=== PATIENT | male | born 1965 | race Caucasian/White ===

== ENCOUNTER → 2016-12-27 | Outpatient (CLI) | payer OTHER ==
--- NOTE | 2016-12-27 15:37 | XR ---
EXAMINATION TYPE: XR wrist complete RT DATE OF EXAM: 12/27/2016 COMPARISON: NONE HISTORY: Pain TECHNIQUE: 3 views submitted. FINDINGS: The joint spaces are preserved. Chronic appearing deformity of the ulnar styloid noted. Chronic defo rmity of the fifth metacarpal suggest previous fracture. IMPRESSION: 1. There is be a chronic deformity involving the ulnar styloid with corticated densities, however, ac bob chip fracture is also suspected correlate with point tenderness.
== END | disposition home or self-care (01) ==
LOC: RADXRYALE 15:19
PROVIDERS: ATTEND Physician Assistant Medical
DX: M21.931 Unspecified acquired deformity of right forearm (principal)

== ENCOUNTER 2017-08-22 21:21 | Emergency (ER) | payer BC, OTHER ==
[2017-08-22 22:01] VITALS: TEMP 97.5
[2017-08-22 22:34] VITALS: BP 139/96; PULSE 73; RESP 15
--- NOTE | 2017-08-22 22:34 | ED ---
Skin/Abscess/FB HPI - General Chief complaint: Skin/Abscess/Foreign Body Stated complaint: Leg injury Time Seen by Provider: 08/22/17 22:26 Source: patient, RN notes reviewed Mode of arrival: ambulatory Limitations: no limitations - History of Present Illness Initial comments: This is a 52-year-old male who presents to the emergency department with chief complaint of left leg injury. Patient states that at approximately 6 PM this evening his left leg slipped and he hit his left alvarez on a tailgate. He states that he then went and mowed the lawn. He felt his alvarez and it was tender; he continued mowing the grass. He states that when he finished mowing the grass, approximately 2 hours after initially hitting his alvarez, he looked down and noticed swelling over the left alvarez. He states that since that time the swelling has gone down slightly. He denies any significant pain. He denies numbness or tingling. He states that he is able to bear weight and ambulate normally. Denies fevers or chills, chest pain or shortness breath, abdominal pain, nausea or vomiting. Denies any other injuries or trauma. - Related Data Home Medications Medication Instructions Recorded Confirmed Metoprolol Tartrate [Lopressor] 50 mg PO DAILY 03/09/14 03/09/14 Previous Rx's Medication Instructions Recorded Cephalexin [Keflex] 500 mg PO Q6HR #40 cap 03/09/14 Allergies Allergy/AdvReac Type Severity Reaction Status Date / Time No Known Allergies Allergy Verified 08/22/17 22:01 Review of Systems ROS Statement: Those systems with pertinent positive or pertinent negative responses have been documented in the HPI. ROS Other: All systems not noted in ROS Statement are negative. Past Medical History Past Medical History: Hypertension Additional Past Medical History / Comment(s): obesity History of Any Multi-Drug Resistant Organisms: None Reported Past Surgical History: Bariatric Surgery, Orthopedic Surgery Additional Past Surgical History / Comment(s): carpel tunnel Past Psychological History: No Psychological Hx Reported Smoking Status: Never smoker Past Alcohol Use History: Occasional Past Drug Use History: None Reported General Exam - General Exam Comments Initial Comments: General: Awake and alert, well-developed; in no apparent distress. HEENT: Head atraumatic, normocephalic. Pupils are equal, round and reactive to light. Extraocular movements intact. Oropharynx moist without erythema or exudate. Neck: Supple. Normal ROM. Cardiovascular: Regular rate and rhythm. No murmurs, rubs or gallops. Chest symmetrical. Respiratory: Lungs clear to auscultation bilaterally. No wheezes, rales or rhonchi. Normal respiratory effort with no use of accessory muscles. Musculoskeletal: Normal range of motion of the left lower extremity. There is soft tissue swelling noted to the distal alvarez with overlying superficial abrasion. Sensation is intact. Pedal pulses are 2+ equal and palpable bilaterally. Skin: [place], warm and dry. Neurological: Alert and oriented x3. CN II-XII grossly intact. Speech is fluent and answers are appropriate. No focal neuro deficits. Psychiatric: Normal mood and affect. No overt signs of depression or anxiety noted. Limitations: no limitations Course Vital Signs 08/22/17 08/22/17 21:56 22:33 Temperature 97.5 F L Pulse Rate 71 73 Respiratory 18 15 Rate Blood Pressure 134/85 139/96 O2 Sat by Pulse 98 95 Oximetry Medical Decision Making - Medical Decision Making This is a 52-year-old male who presented to the emergency department with chief complaint of left leg injury. Patient hit his alvarez against a tailgate earlier today and had noticed swelling to the alvarez. X-ray was obtained and revealed no acute bony abnormalities. Patient likely suffering from a hematoma. Recommended ice and anti-inflammatories. Patient's vital signs are stable and he is in no acute distress. He will be discharged home at this time. All questions answered. - Radiology Data Radiology results: report reviewed, image reviewed X-ray right tibia fibula left impression: No acute abnormality of the left tibia and fibula. Osteoarthritis in the left knee. Disposition Clinical Impression: Hematoma of lower extremity Disposition: HOME SELF-CARE Condition: Good Instructions: Hematoma (ED) Additional Instructions: Please apply ice and take ibuprofen as needed. Please follow up with primary care provider within 1-2 days. Return to emergency department if symptoms should worsen or any concerns arise. Is patient prescribed a controlled substance at d/c from ED?: No Referrals: Jonh Purvis DO [Primary Care Provider] - 1-2 days Time of Disposition: 23:33
--- NOTE | 2017-08-22 23:28 | XR ---
EXAMINATION TYPE: XR tibia fibula LT DATE OF EXAM: 08/22/2017 COMPARISON: NONE HISTORY: Pain TECHNIQUE: 4 views FINDINGS: There is some narrowing of the knee joint spaces. Ankle mortise is anatomic. There are plan tar and Achilles calcaneal spurs. I see no fracture nor dislocation. There are some soft tissue ossif ication along the lateral aspect proximal shaft of the fibula consistent with old injury. IMPRESSION: No acute abnormality of the left tibia and fibula. Osteoarthritis in the left knee.
== END 2017-08-22 23:38 | disposition home or self-care (01) ==
LOC: EC 21:21
DX: S80.12XA Contusion of left lower leg, initial encounter (principal); I10 Essential (primary) hypertension; E66.9 Obesity, unspecified; Z68.35 Body mass index [BMI] 35.0-35.9, adult; Z79.899 Other long term (current) drug therapy; W22.8XXA Striking against or struck by other objects, initial encounter; Y92.89 Other specified places as the place of occurrence of the external cause
CPT/HCPCS: 99283

== ENCOUNTER 2021-08-20 17:46 | Emergency (ER) | payer BC ==
[2021-08-20] MEDS ORDERED: LIDOCAINE 1% INJ 10MG/ML (5 ML VIAL-PF) SQ ONE (19:45)
[2021-08-20] MEDS ORDERED: DIPH,PERTUS(ACELL)TETVAC-LF 0.5 ML VIAL IM ONE (19:47)
[2021-08-20] MEDS ORDERED: BACITRACIN OINT 1 EACH PACKET TOPICAL ONE (19:48)
--- NOTE | 2021-08-20 20:13 | ED ---
Wound/Laceration HPI - General Chief Complaint: Wound/Laceration Stated Complaint: lt leg lac Time Seen by Provider: 08/20/21 19:34 Source: patient, RN notes reviewed Mode of arrival: ambulatory Limitations: no limitations - History of Present Illness Initial Comments: This is a pleasant 56-year-old male who presents to emergency department after sustaining a laceration to his left lower leg. Patient states he was working out in [employer] and a piece of wood, a 4 x 4, kicked up and hit him in the lateral aspect the left lower leg. He has no pain. He has no contamination. Tetanus status is questionable. Denies any distal injuries or proximal injuries. No distal paresthesias. No other injuries. No headache, no fever or chills, no changes in vision or hearing, no sore throat or difficulty with speech, no neck pain, no chest pain or shortness of breath, no abdominal pain, no nausea or vomiting, no changes in urination or bowel movements, no numbness or tingling, no extremity pain, no skin rashes or lesions. - Related Data Home Medications Medication Instructions Recorded Confirmed Metoprolol Tartrate [Lopressor] 50 mg PO DAILY 03/09/14 08/22/17 Ascorbic Acid [Vitamin C] 1,000 mg PO DAILY 08/22/17 08/22/17 Ergocalciferol (Vitamin D2) 50,000 unit PO MO 08/22/17 08/22/17 [Vitamin D2] Fish Oil/Dha/Epa [Fish Oil 1,200 1 cap PO DAILY 08/22/17 08/22/17 mg Fish Oil] Previous Rx's Medication Instructions Recorded Cephalexin [Keflex] 500 mg PO Q8H #40 cap 08/20/21 Allergies Allergy/AdvReac Type Severity Reaction Status Date / Time No Known Allergies Allergy Verified 08/20/21 18:13 Review of Systems ROS Statement: Those systems with pertinent positive or pertinent negative responses have been documented in the HPI. ROS Other: All systems not noted in ROS Statement are negative. Past Medical History Past Medical History: Hypertension Additional Past Medical History / Comment(s): obesity History of Any Multi-Drug Resistant Organisms: None Reported Past Surgical History: Bariatric Surgery, Orthopedic Surgery Additional Past Surgical History / Comment(s): carpel tunnel Past Psychological History: No Psychological Hx Reported Past Alcohol Use History: Occasional Past Drug Use History: None Reported General Exam Limitations: no limitations General appearance: obese Head exam: Present: atraumatic, normocephalic, normal inspection Eye exam: Present: normal appearance, PERRL, EOMI. Absent: scleral icterus, conjunctival injection, periorbital swelling ENT exam: Present: normal exam Neck exam: Present: normal inspection, full ROM Respiratory exam: Present: normal lung sounds bilaterally. Absent: respiratory distress Cardiovascular Exam: Present: regular rate, normal rhythm, normal heart sounds. Absent: clicks GI/Abdominal exam: Present: soft. Absent: tenderness Extremities exam: Present: normal inspection, full ROM, normal capillary refill. Absent: tenderness, pedal edema, joint swelling, calf tenderness Back exam: Present: normal inspection, full ROM Neurological exam: Present: alert, oriented X3, CN II-XII intact, normal gait. Absent: altered, motor sensory deficit Psychiatric exam: Present: normal affect, normal mood. Absent: anxious Skin exam: Present: warm, dry, normal color (Patient has some evidence of devitalized bloodflow to the skin flap itself. There is partial bloodflow noted.). Absent: intact (Patient has a 5 cm flap-like laceration to the lateral aspect of left lower leg.), rash, cyanosis, diaphoretic, erythema, urticaria, vesicles, petechiae, pallor, mottled, abrasion, other Course Vital Signs 08/20/21 18:09 Temperature 98.4 F Pulse Rate 75 Respiratory 20 Rate Blood Pressure 166/96 O2 Sat by Pulse 98 Oximetry Procedures - Laceration Laceration #1 Consent Obtained: verbal consent Indication: laceration Site: lower extremity (Left lower leg) Size (cm): 5 Description: flap (With partial vascular compromise), irregular, clean Depth: simple, single layer Anesthetic Used: lidocaine 1% Anesthesia Technique: local infiltration Pre-repair: wound explored, irrigated extensively, deep structures intact, foreign body removed, extensive debridement (Devitalized tissue debrided with sterile scissors and forceps. Air Diprima 1 x 1 cm.), wound margins revised Type of Sutures: nylon Size of Sutures: 4-0 Number of Sutures: 7 Technique: simple, interrupted Patient Tolerated Procedure: well, no complications Medical Decision Making - Medical Decision Making Patient counseled extensively about wound care. Counseled on signs and symptoms of infection. Counseled on suture removal in 10 days. Patient voiced understanding. Prophylactic antibiotics with cephalexin 500 mg 3 times a day for 5 days. Patient was told to return to the ER for any signs or symptoms worsen. Told to return immediately if any other problems arise. All questions answered. Treatment plan discussed. Patient in agreement Every effort has been made to ensure accuracy of this dictation. However, due to the limitations of electronic medical records and dictation devices, errors in charting still occur. Corrosion Control Specialist Dr. Andrade Disposition Clinical Impression: Laceration of left lower leg Disposition: HOME SELF-CARE Condition: Good Instructions (If sedation given, give patient instructions): Laceration (ED) Additional Instructions: Wash wound daily with warm soapy water. Keep covered with antibiotic ointment as discussed. Keep covered with a sterile bandage. Suture removal in 10 days. Except as directed. Follow-up with your regular physician as directed. Return to the ER immediately if any symptoms worsen, new symptoms arise, or any other problems develop. Is patient prescribed a controlled substance at d/c from ED?: No Referrals: Jonh Purvis DO [Primary Care Provider] - 08/22/21 (as needed for wound c heck) Time of Disposition: 20:07
[2021-08-20 21:10] VITALS: BP 158/80; PULSE 70; RESP 18; TEMP 98
== END 2021-08-20 20:50 | disposition home or self-care (01) ==
LOC: EC 17:46
DX: S81.822A Laceration with foreign body, left lower leg, initial encounter (principal); I10 Essential (primary) hypertension; E66.9 Obesity, unspecified; Z79.899 Other long term (current) drug therapy; Z68.42 Body mass index [BMI] 45.0-49.9, adult; Z23 Encounter for immunization; W26.8XXA Contact with other sharp object(s), not elsewhere classified, initial encounter
CPT/HCPCS: 12032; 90471; 90715; 99282

== ENCOUNTER 2024-01-02 06:14 | Day surgery (SDC) | payer BC, OTHER ==
[2023-12-30 15:20] VITALS: BMI 49.6
[2024-01-02 06:59] VITALS: TEMP 97.1
[2024-01-02] MEDS: IV FLUID CONTINUATION 1,000 ML IV ONE (07:14)
[2024-01-02] MEDS: SODIUM CHLORIDE 0.9% 500 ML DEHP FREE BAG IV STA (07:15)
[2024-01-02 07:19] LABS: Glucose,Whole Blood 103 mg/dL (70-110)
[2024-01-02] MEDS ORDERED: LIDOCAINE 1% INJ 10MG/ML (20 ML MDV) ONE (07:28)
[2024-01-02] MEDS ORDERED: PROPOFOL 10 MG/ML 20 ML VIAL IV ONE (07:28)
[2024-01-02 07:30] LABS: African American GFR (CKD) >90 (>60 ml/min/1.73 sqM); Anion Gap 7 mmol/L; Blood Urea Nitrogen 18 mg/dL (9-20); Calcium 9.1 mg/dL (8.4-10.2); Carbon Dioxide 27 mmol/L (22-30); Chloride 103 mmol/L (98-107); Glucose 104 mg/dL (74-99); Non-African American GFR(CKD) >90 (>60 ml/min/1.73 sqM); Potassium 4.1 mmol/L (3.5-5.1); Sodium 137 mmol/L (137-145)
--- NOTE | 2024-01-02 08:31 | ECHOT ---
TRANSESOPHAGEAL ECHOCARDIOGRAM INDICATION: To rule out intracardiac thrombus prior to cardioversion in a patient with persistent atrial fibrillation. PROCEDURE NOTE: After obtaining informed consent, transesophageal echocardiogram was performed in left lateral position using an Omniplane probe. Local and IV sedation were obtained by the civil technician. The patient tolerated the procedure well without any obvious immediate complications. FINDINGS: 1. Left atrial appendage. There is an echodense lesion noted within the left atrial appendage, suggestive of thrombus. This seemed to have improved compared to previous RENATE, but has not resolved fully. Mitral valve appears anatomically normal. There is trace mitral regurgitation noted. Tricuspid valve shows mild tricuspid regurgitation. Aortic valve is a three-leaflet valve. There is no evidence of aortic stenosis or regurgitation. 2. Aortic root measures within normal limits. 3. Left ventricle has normal size and systolic function with an ejection fraction of 50% to 60%. This has improved significantly compared to his previous RENATE. 4. Interatrial septum: There is no evidence of [id number] shunt by color-flow Doppler or [id number] shunt by agitated saline contrast study. CONCLUSIONS: Normal LV systolic function. Persistence of left atrial appendage thrombus. PLAN: I will continue with the anticoagulant and continue with rate control, and I am going to defer cardioversion at this time. MMODL / IJN: [id number] /
[2024-01-02 08:47] VITALS: BP 117/75; PULSE 76; RESP 18
== END 2024-01-02 09:04 | disposition home or self-care (01) ==
LOC: OR 06:14
PROVIDERS: ATTEND Internal Medicine Cardiovascular Disease
DX: I48.19 Other persistent atrial fibrillation
CPT/HCPCS: 80048; 93312; 93320; 93325

== ENCOUNTER → 2024-04-09 | Outpatient (CLI) | payer BC ==
[2024-04-09 15:31] LABS: Blood Urea Nitrogen 17.2 mg/dL (9.0-27.0); Glucose 112 mg/dL (70-110)
[2024-04-09 15:32] LABS: Calcium 9.2 mg/dL (8.7-10.3); Carbon Dioxide 23.3 mmol/L (21.6-31.8); Chloride 105 mmol/L (96-109); Potassium 4.4 mmol/L (3.5-5.5); Sodium 140 mmol/L (135-145)
== END ==
LOC: LABWHC1 09:16
PROVIDERS: ATTEND Internal Medicine Cardiovascular Disease
DX: I48.19 Other persistent atrial fibrillation (principal)
CPT/HCPCS: 36415; 80048; 84443

== ENCOUNTER 2024-04-23 08:40 | Day surgery (SDC) | payer BC ==
[2024-04-21 14:14] VITALS: BMI 48.1
[~2024-04-23 08:40] MED LIST: LACTATED RINGERS 1,000 ML IV SCH
[2024-04-23] MEDS: IV FLUID CONTINUATION 1,000 ML IV ONE (09:04)
[2024-04-23 09:33] LABS: Glucose,Whole Blood 98 mg/dL (70-110)
[2024-04-23] MEDS ORDERED: LIDOCAINE 2% (PF) 20 MG/ML 5 ML VIAL ONE (09:59)
[2024-04-23] MEDS ORDERED: PROPOFOL 10 MG/ML 20 ML VIAL IV ONE (09:59)
[2024-04-23] MEDS: BENZOCAINE SPRAY 1 EACH MM ONE (10:03)
[2024-04-23] MEDS ORDERED: SODIUM CHLORIDE 0.9% 1,000 ML IV SCH (10:30)
[2024-04-23 10:41] VITALS: TEMP 97
[2024-04-23 11:36] VITALS: BP 110/71; PULSE 61; RESP 18
--- NOTE | 2024-04-23 12:21 | ECHOT ---
TRANSESOPHAGEAL ECHOCARDIOGRAM INDICATION: To rule out intracardiac thrombus prior to cardioversion. PROCEDURE NOTE: After obtaining informed consent, transesophageal echocardiogram was performed in left lateral position using an Omniplane probe. Local and IV sedation were obtained by the nurse special. FINDINGS: 1. There is no intracardiac thrombus within the left atrial appendage, left atrium, right atrium, right ventricle. 2. Left ventricle has normal size and systolic function. 3. Mitral valve shows mild mitral regurgitation. Tricuspid valve appears normal. There is no evidence of [id number] shunt by color-flow Doppler. Aortic root appears normal. Aortic valve is a 3-leaflet valve. 4. There is no evidence of aortic stenosis or regurgitation. CONCLUSIONS: No intracardiac thrombus. PLAN: The patient will undergo cardioversion. MMODL / IJN: [id number] /
--- NOTE | 2024-04-23 13:03 | PCN ---
PROCEDURE NOTE CARDIOVERSION NOTE: After ruling out an intracardiac thrombus with a transesophageal echo, adequate anticoagulation with Eliquis, the patient underwent cardioversion with 150 joules of synchronized DC current and converted to sinus rhythm following a single shock. The patient will be discharged home on Eliquis and I am going to change his beta cornel dose. AZRA / SHORTYN: [id number] /
== END 2024-04-23 11:48 | disposition home or self-care (01) ==
LOC: OR 08:40
PROVIDERS: ATTEND Internal Medicine Cardiovascular Disease
DX: I48.19 Other persistent atrial fibrillation (principal); I34.0 Nonrheumatic mitral (valve) insufficiency; I42.0 Dilated cardiomyopathy; I10 Essential (primary) hypertension; F17.210 Nicotine dependence, cigarettes, uncomplicated; E66.9 Obesity, unspecified; Z68.42 Body mass index [BMI] 45.0-49.9, adult; Z79.899 Other long term (current) drug therapy
CPT/HCPCS: 93312; 93320; 93325; 92960; J2704; J2003